=== PATIENT | male | born 2000 | race Caucasian/White ===

== ENCOUNTER 2022-04-03 10:56 | Emergency (ER) | payer OTHER, SELFPAY ==
--- NOTE | ~2022-04-03 | XR_ITS ---
Lumbosacral Spine: AP and lateral views Clinical History: Pain Findings: The normal lordotic curve is maintained. The vertebral bodies and posterior elements are i ntact. The intervertebral disc spaces are preserved. The sacroiliac joints are normally outlined. S mall density noted adjacent to the left L3 transverse process. Impression: No significant abnormality of the lumbar spine itself. Is Small calcified density adjacent to the left L3 transverse process. This is nonspecific, but a mid ur eteral stone is a potential consideration. Correlate clinically. Reviewed, dictated and finalized at location M. N OPERATOR Impression: No significant abnormality of the lumbar spine itself. Is Small calcified density adjacent to the left L3 transverse process. This is non specific, but a mid ureteral stone is a potential consideration. Correlate clin ically.
--- NOTE | ~2022-04-03 | CT_ITS ---
EXAMINATION: CT abdomen pelvis wo con DATE: 04/03/2022 13:12 INDICATION: Left flank pain. Nephrolithiasis. TECHNIQUE: Computed tomography (CT) of the abdomen and pelvis was performed without intravenous contr ast. Automated exposure control and iterative reconstruction technique were employed. The dose-length product was 1027.59 mGy-cm. COMPARISON: None FINDINGS: Lung bases are clear. Heart size normal. No pericardial or pleural effusion. Liver, gallbladder, panc reas, spleen and bilateral adrenal glands are normal. Bilateral nephrolithiasis with the 3 1 mm stone s in the right kidney and 2 mm stone in an upper pole calyx of the left kidney. There is an obstructi ng 3-4 mm stone in the proximal left ureter resulting in mild left hydroureteronephrosis. No other ur eteral stones on either the left or right. Bladder is normal. Bowels including the appendix are elisa l. No free intraperitoneal gas or fluid. No pathologically enlarged abdominal or pelvic lymphadenopat hy. Bones are unremarkable. IMPRESSION: 1. Bilateral nephrolithiasis with obstructing 3 to 4 mm proximal left ureteral stone with mild left h ydronephrosis. Reviewed, dictated and finalized at location A. IMPRESSION: 1. Bilateral nephrolithiasis with obstructing 3 to 4 mm proximal left ureteral stone with mild left hydronephrosis.
[2022-04-03 11:11] VITALS: BP 153/94; PULSE 91; RESP 18; TEMP 37.1; O2SAT 100
[2022-04-03 11:30] LABS: Basophils Percent Auto 0.2 % (0.2-1.2); Eosinophils Absolute Auto 0.1 K/mm3 (0-0.3); Eosinophils Percent Auto 0.4 % (0-4.4); Hematocrit 42.8 % (42.0-52.0); Immature Granulocyte Absolute 0.06 K/mm3 (0.00-0.031); Immature Granulocyte Percent A 0.4 % (0-0.5); Lymphocytes Absolute Auto 1.13 K/mm3 (0.9-3.2); Lymphocytes Percent Auto 8.3 % (18.3-44.2); Mean Corpuscular Hemoglobin 30.9 pg (26-34); Mean Corpuscular Volume 88.2 fl (80-100); Mean Platelet Volume 9.7 fl (7.4-10.4); Monocytes Absolute Auto 0.9 K/mm3 (0.1-0.6); Monocytes Percent Auto 6.7 % (2.6-8.5); Neutrophils Absolute Auto 11.4 K/mm3 (1.3-6.7); Platelet Count Result 391 k/mm3 (150-375); Red Blood Count 4.85 M/mm3 (4.6-6.20); Red Cell Distribution Width 13.1 % (11.5-14.5); White Blood Count 13.6 K/mm3 (4.5-10.0)
[2022-04-03 11:39] LABS: Add Urine Microscopic? YES; Appearance Urine Clear (Clear); Bilirubin Urine Negative (Negative); Blood Urine 2+ (Negative); Color Urine Light Yellow (Yellow); Glucose Urine UA Negative (Negative); Ketones Urine Negative (Negative); Leukocyte Esterase Ur Negative LEU/UL (Negative); Nitrate Urine Positive (Negative); Protein Urine Negative (Negative); Specific Grav Ur 1.025 (1.001-1.035); Urobilinogen Urine 0.2 mg/dL (<2.0)
[2022-04-03 11:41] LABS: Alanine Aminotransferase 39 U/L (6-50); Albumin Level 4.8 g/dL (3.5-5.1); Alkaline Phosphatase 66 U/L (38-126); Anion Gap 9 mmol/L (8-16); Aspartate Amino Transferase 31 U/L (17-59); Bilirubin,Total 0.5 mg/dL (0.2-1.3); Blood Urea Nitrogen 14 mg/dL (9-20); Calcium 9.1 mg/dL (8.4-10.2); Carbon Dioxide 25 mmol/L (22-30); Chloride 107 mmol/L (98-107); Estimated CRCL calculation 112 ml/min; Estimated Glomerular Filt Rate > 60; Glucose 99 mg/dL (65-110); Potassium 4.3 mmol/L (3.4-5.0); Sodium 141 mmol/L (137-145)
[2022-04-03 11:46] LABS: Mucus Urine Rare /lpf; Squamous Epithelial Cell Urine Rare /hpf (Few); WBC Urine 0-3 /hpf
--- NOTE | 2022-04-03 13:02 | ED.BACK ---
HPI - Back Pain/Injury General Chief Complaint: Back Pain/Injury Stated Complaint: L flank pain Time Seen by Provider: 04/03/22 12:26 History of Present Illness HPI Narrative: Patient is a 21-year-old male here for evaluation of left flank pain over the past several days. Patient states the pain is sharp and shooting in nature, and provoked by position changes. He states that it feels identical to previous kidney stone pain. He also notes mild dysuria over the past several days. No fevers, chills, nausea or vomiting. Previous kidney stones have passed on their own and have not required surgical intervention. Related Data Allergies Allergy/AdvReac Type Severity Reaction Status Date / Time No Known Allergies Allergy Verified 04/03/22 12:39 Review of Systems Review of Systems: Gen.: Denies fevers or chills Eyes: Denies eye pain or visual change ENT: Denies congestion Respiratory: Denies shortness of breath or cough CV: Denies chest pain or palpitations GI: Reports abdominal pain nausea, emesis or diarrhea denies burning, urgency, frequency or hematuria Musculoskeletal: Reports left flank pain. Neuro: Denies numbness, tingling, weakness or focal weakness Skin: Denies rash 10 point review of systems negative, other than as per history of present illness, past medical history and other positives and review of systems Exam Narrative: APPEARANCE: Well appearing, no pain in distress, well-nourished. Head: Normocephalic and atraumatic. EYES: PERRLA/EOMI, conjunctivae clear NOSE: No nasal drainage EARS: External ear normal in appearance THROAT: Oropharynx is clear. Mucous membranes are moist. NECK: Supple. No adenopathy, no masses. RESPIRATORY: Airway patent, respirations nonlabored. Clear to auscultation bilaterally, no rales, rhonchi, wheezing. CARDIOVASCULAR: Regular rate and rhythm without murmurs, rubs, or gallops. ABDOMINAL: Normoactive bowel sounds. Soft, nontender, nondistended. No rebound tenderness or guarding. MUSCULOSKELETAL: Extremities are warm and well-perfused. Moves all extremities well. No edema. NEURO: Normal speech. No focal neurologic deficits. SKIN: Skin is warm and dry. No rashes. PSYCHIATRIC: Normal affect/mood. Course Vital Signs Vital signs: Vital Signs Temperature 98.7 F 04/03/22 11:11 Pulse Rate 91 04/03/22 11:11 Respiratory Rate 18 04/03/22 11:11 Blood Pressure 153/94 H 04/03/22 11:11 Pulse Oximetry 100 04/03/22 11:11 Oxygen Delivery Room Air 04/03/22 11:11 Temperature 98.7 F 04/03/22 11:11 Pulse Rate 98 04/03/22 14:35 Respiratory Rate 15 04/03/22 14:35 Blood Pressure 138/99 H 04/03/22 14:35 Pulse Oximetry 100 04/03/22 14:35 Oxygen Delivery Room Air 04/03/22 11:11 MDM - Back Pain/Injury MDM Narrative Medical decision making narrative: 21-year-old male with a history of kidney stones here for evaluation of left flank pain, nausea, dysuria over the past several days. Patient is uncomfortable appearing; vital signs are normal. He is afebrile. His urine is nitrate positive and he has 2+ blood. He has a white count of 13.6. Normal kidney function. He has evidence of an obstructing 3 mm proximal stone on the left and nonobstructing nephrolithiasis on the right. Patient feeling improved after morphine in the ED. spoke with Dr. Butcher from urology, agrees with plan for outpatient antibiotics and he will see in clinic. Feel this is reasonable as patient is pain-free and has no fever. He was given strict return precautions to the ED should he develop a fever or worsening pain. Lab Data 04/03/22 11:19 04/03/22 11:19 Labs: Lab Results 04/03/22 04/03/22 04/03/22 Range/Units 11:19 11:19 11:28 WBC 13.6 H (4.5-10.0) K/mm3 RBC 4.85 (4.6-6.20) M/mm3 Hgb 15.0 (14.0-18.0) g/dL Hct 42.8 (42.0-52.0) % MCV 88.2 (80-100) fl MCH 30.9 (26-34) pg MCHC 35.0 (32-36) g/dl RDW 13.1 (11.5-14.
--- NOTE | 2022-04-03 13:10 | PC.NURSE ---
Pt to CT scan via stretcher at this time.
[2022-04-03] MEDS: MORPHINE SULFATE (*CRX) 4 MG/ML INJ IV PUSH (13:34)
[2022-04-03] MEDS: SODIUM CHLORIDE 0.9% IV 1,000 ML 999 ML IV CONT (13:34)
[2022-04-03 14:25] LABS: Influenza A QL RT-PCR Negative (Negative); Influenza B QL RT-PCR Negative (Negative); SARS-CoV-2 RNA PCR Negative
[2022-04-03] MEDS: MORPHINE SULFATE (*CRX) 2 MG/ML INJ IV PUSH (14:33)
[2022-04-03 14:35] VITALS: BP 138/99; PULSE 98; RESP 15; O2SAT 100
[2022-04-03] MEDS: HYDROcodone/acetaminophen (*CRX) 5-325 MG TABLET 1 TAB PO (15:10)
== END 2022-04-03 15:22 | disposition home or self-care (01) ==
PROVIDERS: Family Medicine; Emergency Provider Physician Assistant
DX: N20.1 Calculus of ureter (principal); Z20.822 Contact with and (suspected) exposure to COVID-19
CPT/HCPCS: 36415; 72110; 74176; 80053; 81001; 85025; 87636; 96365; 96375; 99284; A9270; J0696; J2270; J7030

== ENCOUNTER 2022-04-04 13:26 | Outpatient (CLI) | payer OTHER, SELFPAY ==
--- NOTE | ~2022-04-04 | XR_ITS ---
EXAMINATION: XR abdomen/kub 1V INDICATION: Left ureteral stone TECHNIQUE: Supine views of the abdomen were obtained on 2 radiographs. COMPARISON: CT from yesterday FINDINGS: There is a 3 mm stone in the proximal left ureter projecting between the left L3 and L4 tra nsverse processes. Position is unchanged compared to yesterday's CT scan. Small bilateral stones note d on yesterday's CT are not definitely identified. The bowel gas pattern is normal. The visualized becky ng bases are clear. IMPRESSION: 1. Unchanged stone of the proximal left ureter. Reviewed, dictated and finalized at location B. [employer]
== END 2022-04-04 13:27 | disposition home or self-care (01) ==
LOC: ANHIMG 13:31
PROVIDERS: Visit Provider Urology
DX: N20.1 Calculus of ureter (principal)
CPT/HCPCS: 74018